=== PATIENT | female | born 1995 | race Caucasian/White ===

== ENCOUNTER 2017-04-11 14:26 | Emergency (ER) | payer SELFPAY ==
[~2017-04-11] VITALS: Ht 170.2 cm; Wt 131.8 kg
[2017-04-11 14:28] VITALS: BP 135/87; PULSE 96; TEMP 98.7
== END 2017-04-11 16:14 | disposition home or self-care (01) ==
LOC: COL.ER 14:26
DX: S81.812A Laceration without foreign body, left lower leg, initial encounter (principal); Z23 Encounter for immunization; W22.8XXA Striking against or struck by other objects, initial encounter; Y92.34 Swimming pool (public) as the place of occurrence of the external cause

== ENCOUNTER 2017-10-04 01:46 | Emergency (ER) | payer SELFPAY ==
[~2017-10-04] VITALS: Ht 170.2 cm; Wt 127.3 kg
[~2017-10-04 01:46] MED LIST: AMOXICILLIN 50500 MG PO
[2017-10-04 02:59] LABS: BASO % 0.1 % (0.0-2.0); EOS # 0.2 (0.0-0.7); EOS % 1.3 % (0-4.0); GRAN # 12.7 (1.4-6.5); GRAN % 86.6 % (42.2-75.2); HEMATOCRIT 38.1 % (35.0-45.0); HEMOGLOBIN 12.6 g/dl (12.0-15.0); LYMPH % 6.8 % (20.0-51.0); MEAN CELL VOLUME 71 fl (80.0-95.0); MEAN CORPUSCULAR HEMOGLOBIN 24 pg (26.0-32.0); MEAN CORPUSCULAR HGB CONC 33 g/dl (33.0-37.0); MEAN PLATELET VOLUME 8.8 fl (7.4-10.4); MONO # 0.7 (0.1-0.6); MONO % 4.9 % (1.7-9.3); PLATELET COUNT 447 K/mm3 (130-400); RED BLOOD COUNT 5.36 M/mm3 (4.10-5.30); REDCELL DISTRIBUTION WIDTH-CV 16.6 % (11.5-14.5)
[2017-10-04 03:08] LABS: ALBUMIN 4.6 gm/dL (3.5-5.0); BILIRUBIN,TOTAL 0.7 mg/dL (0.0-1.0); CALCIUM 10.7 mg/dL (8.4-10.2); CREATININE, serum 0.54 mg/dL (0.52-1.25); POTASSIUM 4.6 mmol/L (3.4-5.0); TOTAL PROTEIN 8.2 gm/dL (6.4-8.2)
[2017-10-04 03:25] LABS: COLLECTION METHOD CLEAN CATCH
[2017-10-04 03:35] LABS: MUCOUS Present /lpf; PH 5 (5-8); URINE APPEARANCE Hazy; URINE BACTERIA Rare /hpf; URINE BILIRUBIN Negative (NEGATIVE); URINE BLOOD 1+ (NEGATIVE); URINE CALCIUM OXALATE CRYSTAL Present /hpf; URINE COLOR Yellow; URINE GLUCOSE Negative (NEGATIVE); URINE KETONE Trace (NEGATIVE); URINE LEUKOCYTE ESTERASE 1+ (NEGATIVE); URINE NITRATE Negative (NEGATIVE); URINE PROTEIN(semi-quant) Negative (NEGATIVE); URINE UROBILINOGEN Negative (NEGATIVE)
[2017-10-04] MEDS ORDERED: CIPRO 500MG TA500 MG PO (04:03)
[2017-10-04] MEDS ORDERED: ZOFRAN 4MG T4 MG/TAB PO (05:29)
[2017-10-04 05:59] VITALS: BP 149/65; PULSE 129; TEMP 99.6
== END 2017-10-04 06:20 | disposition home or self-care (01) ==
LOC: COL.ER 01:46
PROVIDERS: Emergency Medicine
DX: N39.0 Urinary tract infection, site not specified (principal)
CPT/HCPCS: J0696; J2405; J7030

== ENCOUNTER 2018-04-16 12:36 | Emergency (ER) | payer SELFPAY ==
[~2018-04-16] VITALS: Ht 170.2 cm; Wt 136.4 kg
[~2018-04-16 12:36] MED LIST changes: +CIPRO 500MG TA500 MG PO; +ZOFRAN 4MG T4 MG/TAB PO
[2018-04-16 12:45] VITALS: BP 123/63; PULSE 71; TEMP 98.3
[2018-04-16] MEDS ORDERED: AMOXICILLIN 50500 MG PO (13:03)
== END 2018-04-16 13:09 | disposition home or self-care (01) ==
LOC: COL.ER 12:36
DX: H92.02 Otalgia, left ear (principal); R68.84 Jaw pain

== ENCOUNTER 2018-04-29 10:27 | Emergency (ER) | payer SELFPAY ==
[~2018-04-29] VITALS: Ht 170.2 cm; Wt 125.0 kg
[2018-04-29 10:51] VITALS: BP 119/70; PULSE 63; TEMP 99.2
== END 2018-04-29 12:20 | disposition home or self-care (01) ==
LOC: COL.ER 10:27
DX: R22.0 Localized swelling, mass and lump, head (principal); F41.9 Anxiety disorder, unspecified; E28.2 Polycystic ovarian syndrome

== ENCOUNTER 2019-01-07 18:49 | Emergency (ER) | payer SELFPAY ==
[~2019-01-07] VITALS: Ht 167.6 cm; Wt 127.3 kg
[2019-01-07 18:53] VITALS: TEMP 99.8
[2019-01-07] MEDS ORDERED: FLEXERIL 1010 MG/TAB PO (19:59)
[2019-01-07 20:37] LABS: COLLECTION METHOD CLEAN CATCH
[2019-01-07 20:42] LABS: MUCOUS Present /lpf; PH 5 (5-8); SQUAMOUS EPITHELIAL 0-2 /hpf; URINE APPEARANCE Clear; URINE BACTERIA Rare /hpf; URINE BILIRUBIN Negative (NEGATIVE); URINE BLOOD Negative (NEGATIVE); URINE COLOR Yellow; URINE GLUCOSE Negative (NEGATIVE); URINE KETONE Negative (NEGATIVE); URINE LEUKOCYTE ESTERASE Negative (NEGATIVE); URINE NITRATE Negative (NEGATIVE); URINE PROTEIN(semi-quant) Negative (NEGATIVE); URINE RBC 0-2 /hpf
[2019-01-07 21:13] VITALS: BP 125/68; PULSE 89
== END 2019-01-07 21:13 | disposition home or self-care (01) ==
LOC: COL.ER 18:49
PROVIDERS: Emergency Medicine
DX: M54.5 Low back pain (principal)
CPT/HCPCS: J1885; J2270

== ENCOUNTER 2019-09-19 12:53 | Emergency (ER) | payer SELFPAY ==
[~2019-09-19] VITALS: Ht 170.2 cm; Wt 127.3 kg
[~2019-09-19 12:53] MED LIST changes: +FLEXERIL 1010 MG/TAB PO
[2019-09-19 13:11] VITALS: BP 119/75; TEMP 101.8
[2019-09-19 13:33] LABS: COLLECTION METHOD CLEAN CATCH
[2019-09-19 13:47] LABS: AMORPHOUS CRYSTAL Present /uL; MUCOUS Present /lpf; PH 5 (5-8); URINE APPEARANCE Cloudy; URINE BACTERIA Rare /hpf; URINE BILIRUBIN Negative (NEGATIVE); URINE BLOOD Negative (NEGATIVE); URINE COLOR Amber; URINE GLUCOSE Negative (NEGATIVE); URINE KETONE Negative (NEGATIVE); URINE LEUKOCYTE ESTERASE 2+ (NEGATIVE); URINE NITRATE Negative (NEGATIVE); URINE PROTEIN(semi-quant) 2+ (NEGATIVE)
[2019-09-19] MEDS ORDERED: CEPHALEXIN500 M1 PO (14:40)
[2019-09-19 14:58] VITALS: PULSE 86
== END 2019-09-19 14:58 | disposition home or self-care (01) ==
LOC: COL.ER 12:53
PROVIDERS: Physician Assistant
DX: N39.0 Urinary tract infection, site not specified (principal); F41.9 Anxiety disorder, unspecified; F32.9 Major depressive disorder, single episode, unspecified

== ENCOUNTER 2020-04-22 08:50 | Emergency (ER) | payer SELFPAY ==
[~2020-04-22] VITALS: Ht 167.6 cm; Wt 127.3 kg
[~2020-04-22 08:50] MED LIST changes: +CEPHALEXIN500 M1 PO
[2020-04-22 08:57] VITALS: TEMP 98.2
[2020-04-22 09:31] LABS: BASO % 0.1 % (0.0-2.0); EOS # 0.1 (0.0-0.7); EOS % 1.1 % (0-4.0); GRAN # 5.6 (1.4-6.5); GRAN % 75.5 % (42.2-75.2); LYMPH # 1.2 (1.2-3.4); LYMPH % 15.8 % (20.0-51.0); MEAN CELL VOLUME 65 fl (80.0-100.0); MEAN CORPUSCULAR HEMOGLOBIN 19 pg (27.0-31.0); MEAN CORPUSCULAR HGB CONC 30 g/dl (33.0-37.0); MONO # 0.5 (0.1-0.6); MONO % 7.1 % (1.7-9.3); PLATELET COUNT 416 K/mm3 (130-400)
[2020-04-22 09:32] LABS: HEMATOCRIT 33.9 % (37.0-47.0)
[2020-04-22 09:39] LABS: ALBUMIN 4.2 gm/dL (3.5-5.0); BILIRUBIN,TOTAL 0.5 mg/dL (0.0-1.0); CALCIUM 9.1 mg/dL (8.4-10.2); CREATININE, serum 0.62 (0.52-1.25); POTASSIUM 3.7 mmol/L (3.4-5.0); TOTAL PROTEIN 8.1 gm/dL (6.4-8.2)
[2020-04-22 12:40] VITALS: BP 113/58; PULSE 74
== END 2020-04-22 12:45 | disposition home or self-care (01) ==
LOC: COL.ER 08:50
PROVIDERS: Emergency Medicine
DX: O03.9 Complete or unspecified spontaneous abortion without complication (principal); Z87.42 Personal history of other diseases of the female genital tract; Z3A.00 Weeks of gestation of pregnancy not specified
CPT/HCPCS: J2270; J2405; J2791; J3010; J7030

== ENCOUNTER 2020-11-05 19:12 | Emergency (ER) | payer BC ==
[~2020-11-05] VITALS: Ht 167.6 cm; Wt 127.3 kg
[2020-11-05 19:20] VITALS: TEMP 98.1
[2020-11-05] MEDS ORDERED: FIORICET 325 MG1 TA1 PO (21:32)
[2020-11-05] MEDS ORDERED: MOTRIN 400400 MG/TAB PO (21:32)
[2020-11-05 21:46] VITALS: BP 145/87; PULSE 92
== END 2020-11-05 21:48 | disposition home or self-care (01) ==
LOC: COL.ER 19:12
DX: R51.9 Headache, unspecified (principal); M54.2 Cervicalgia; Z32.02 Encounter for pregnancy test, result negative
CPT/HCPCS: J1200; J2765; J7030